=== PATIENT | female | born 1995 | race Caucasian/White ===

== ENCOUNTER 2022-12-18 21:04 | Emergency (ER) | payer OTHER, SELFPAY ==
--- NOTE | 2022-12-18 22:32 | ED.GENADULT ---
HPI - General Adult General Stated complaint: Enviromental Exposure Time Seen by Provider: 12/18/22 21:35 History of Present Illness HPI narrative: Patient 27-year-old female who presents the emergency department with chief complaint of needlestick. 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 Patient reports no other injuries reports her tetanus is up-to-date The source patient is known and HIV and hepatitis panels have been sent Related Data Allergies Allergy/AdvReac Type Severity Reaction Status Date / Time No Known Drug Allergies Allergy Mild Other Verified 11/15/22 10:57 Review of Systems Review of Systems: A 10 system review of systems was completed on the patient and is negative except for what is stated in the HPI. Nursing and ancillary documentation was reviewed. [facility] Surgical History Surgical History H/O wisdom tooth extraction Status post right foot surgery Family History Family History Other Heart disease Hypertension Hypothyroid Skin cancer Social History Social History Smoking status: Never smoker Alcohol intake: current Substance use: never Substance use type: does not use Lack of Transportation: No Lack of Food: Never True Current Housing: I Have Housing Concerned About Future Housing: No Difficulty Paying Gas/Electric Bills: No Difficulty Paying for Meds: No Currently Unemployed: No Education: Master's Degree or Higher Difficulty w/ Childcare or Family Care: No Living arrangements: with friend(s) Occupation/Education: occupation Gender identity (if verbalized by the patient): Female Sexual Orientation (if Verbalized by the Patient): Straight or Heterosexual Exam Narrative: GENERAL: Well-appearing, well-nourished, and in no acute distress. HEAD: Normocephalic, atraumatic. EYES: PERRLA and EOMI. ENT: Nares clear, no rhinorrhea or epistaxis. Mucous membranes moist. NECK: Supple. CHEST: Clear to auscultation. No respiratory distress. HEART: Regular rate and rhythm. No murmur heard. Normal peripheral pulses. ABDOMEN: Soft, nontender, nondistended, normal active bowel sounds. EXTREMITIES: Normal range of motion. No edema. SKIN: Warm, dry, no rash. Small puncture wound to right thumb NEURO: No focal deficits. Alert and oriented x3. PSYCH: Normal mood and affect. Medical Decision Making Lab Data Labs: Lab Results 12/18/22 Range/Units 21:23 Hep Bs Antibody Pending Hepatitis C Ab Screen Negative (Negative) HIV 1&2 Ab/P24 Ag 4thGn Negative (Negative) Discharge Plan Discharge Clinical Impression: Needlestick injury accident Patient Disposition: Home, Self-Care Condition: Stable Instructions: Antibiotic Form, Needle Stick Injuries (ED) Prescriptions: No Action drospirenone-ethinyl estradiol [Loryna (28)] 3-0.02 mg tablet 1 tablet PO DAILY Qty: 84 4RF Follow-up/Referrals: Archana,Vivian Denis APRN [Primary Care Provider] -
[2022-12-18 22:44] LABS: HIV 1/2 Ab P24 Ag Result Negative (Negative); Hepatitis B Surface Antibody > 1000.00 s/c; Hepatitis C Virus Antibody Negative (Negative)
[2022-12-19 00:05] LABS: Hepatitis B Surface Anti Res Positive
== END 2022-12-18 21:50 | disposition home or self-care (01) ==
PROVIDERS: Physician Assistant; Emergency Provider Emergency Medicine; PCP Nurse Practitioner Family
DX: S61.031A Puncture wound without foreign body of right thumb without damage to nail, initial encounter (principal); W46.1XXA Contact with contaminated hypodermic needle, initial encounter; Y93.F9 Activity, other caregiving; Z20.6 Contact with and (suspected) exposure to human immunodeficiency virus [HIV]; Z77.21 Contact with and (suspected) exposure to potentially hazardous body fluids
CPT/HCPCS: 36415; 86703; 86706; 86803; 99283; G0432

== ENCOUNTER 2023-05-22 11:25 | Outpatient (CLI) | payer OTHER, SELFPAY ==
[2023-05-24 13:10] LABS: DHEA-Sulfate 140 mcg/dL (18-391)
[2023-05-25 07:23] LABS: Progesterone 0.4 ng/mL (***)
[2023-05-26 04:59] LABS: Testosterone Total 43 ng/dL (2-45)
[2023-05-31 01:02] LABS: Estradiol, Ultrasensitive 38 pg/mL
[2023-05-31 15:27] LABS: Anti Mullerian Hormone,Female 8.73 ng/mL (0.69-13.39)
== END 2023-05-22 11:26 | disposition home or self-care (01) ==
PROVIDERS: PCP Nurse Practitioner Family; Visit Provider Obstetrics & Gynecology
DX: N92.6 Irregular menstruation, unspecified (principal)
CPT/HCPCS: 36415; 82627; 82670; 83001; 83498; 84144; 84403; 84443

== ENCOUNTER 2023-06-14 17:26 | Outpatient (CLI) | payer OTHER, SELFPAY | END 2023-06-14 17:27 | disposition home or self-care (01) | LOC: ANHLAB 17:27 | PROVIDERS: PCP Nurse Practitioner Family; Visit Provider Obstetrics & Gynecology | DX: N92.6 Irregular menstruation, unspecified (principal) | CPT/HCPCS: 36415; 84144 ==

== ENCOUNTER 2023-07-29 12:41 | Outpatient (CLI) | payer OTHER, SELFPAY ==
[2023-07-30 08:04] LABS: Progesterone 39.6 ng/mL
== END 2023-07-29 12:42 | disposition home or self-care (01) ==
LOC: ANHLAB 12:42
PROVIDERS: Visit Provider Obstetrics & Gynecology
DX: N92.6 Irregular menstruation, unspecified (principal)
CPT/HCPCS: 36415; 84144

== ENCOUNTER 2023-10-21 14:13 | Outpatient (CLI) | payer OTHER, SELFPAY ==
[2023-10-21 15:13] LABS: Beta HCG Quantitative 100.94 mIU/ML
== END 2023-10-21 14:14 | disposition home or self-care (01) ==
LOC: ANHLAB 14:15
PROVIDERS: Visit Provider Obstetrics & Gynecology
DX: N92.6 Irregular menstruation, unspecified (principal)
CPT/HCPCS: 36415; 84702

== ENCOUNTER 2023-10-23 08:49 | Outpatient (CLI) | payer OTHER, SELFPAY ==
[2023-10-23 10:00] LABS: Beta HCG Quantitative 87.27 mIU/ML
== END 2023-10-23 08:50 | disposition home or self-care (01) ==
LOC: ANHLAB 08:50
PROVIDERS: Visit Provider Obstetrics & Gynecology
DX: N92.6 Irregular menstruation, unspecified (principal)
CPT/HCPCS: 36415; 84702